=== PATIENT | female | born 1970 | race African-American/Black ===

== ENCOUNTER 2021-11-16 14:40 | Emergency (ER) | payer MEDICAID, OTHER ==
[~2021-11-16] VITALS: Ht 160 cm; Wt 57.8 kg
[2021-11-16 14:41] VITALS: BP 109/63
[2021-11-16] MEDS ORDERED: KETOROLAC 30 MG/ML 1ML VIAL IV ONE (16:15)
[2021-11-16] MEDS ORDERED: KETOROLAC 30 MG/ML 1ML VIAL IM ONE ×2 (16:25→16:30)
== END 2021-11-16 16:42 | disposition home or self-care (01) ==
LOC: M ED 14:40
DX: M25.572 Pain in left ankle and joints of left foot (principal); R22.40 Localized swelling, mass and lump, unspecified lower limb; F31.9 Bipolar disorder, unspecified
CPT/HCPCS: 96372; 99284; J1885

== ENCOUNTER 2021-12-31 17:58 | Emergency (ER) | payer OTHER ==
[2021-12-31 20:34] LABS: BASO % 0.4 % (0.0-1.0); EOS # 0.2 10^3/uL (0.0-0.5); EOS % 2.4 % (0.0-3.0); HEMOGLOBIN 14.1 g/dl (12.0-15.5); LYMPH # 3.2 10^3/uL (1.5-5.0); LYMPH % 38.3 % (24.0-44.0); MEAN CORPUSCULAR HEMOGLOBIN 31.5 pg (27.0-33.0); MEAN CORPUSCULAR HGB CONC 33.6 g/dl (32.0-36.5); MEAN CORPUSCULAR VOLUME 93.8 fl (80.0-96.0); MONO % 12.3 % (2.0-8.0); NEUTROPHILS # 3.8 10^3/uL (1.5-8.5); NEUTROPHILS % 46.4 % (36.0-66.0); PLATELET COUNT, AUTOMATED 250 10^3/uL (150-450); RED BLOOD COUNT 4.48 10^6/uL (4.00-5.40); WHITE BLOOD COUNT 8.2 10^3/uL (4.0-10.0)
[2021-12-31] MEDS ORDERED: MORPHINE 4 MG/ML 1ML VIAL/SYRINGE IV ONE (20:40)
[2021-12-31] MEDS ORDERED: NS 1,000 ML IV ONE (20:40)
[2021-12-31] MEDS ORDERED: ONDANSETRON 4MG 2ML VIAL IV ONE (20:40)
[2021-12-31] MEDS ORDERED: ISOVUE-370 76% 100ML VIAL As Ordered ONE (20:45)
[2021-12-31 21:22] LABS: ALBUMIN 3.2 GM/DL (3.2-5.2); ALT/SGPT 28 U/L (12-78); BILIRUBIN,DIRECT < 0.1 MG/DL (0.0-0.2); BILIRUBIN,TOTAL 0.3 MG/DL (0.2-1.0); LIPASE 139 U/L (73-393)
[2021-12-31 22:13] VITALS: BP 100/57
== END 2021-12-31 22:36 | disposition home or self-care (01) ==
LOC: EDSEX 17:58 → M ED 17:58 → EDBD 17:58 → M ED 22:36
DX: R10.31 Right lower quadrant pain (principal); K76.89 Other specified diseases of liver; F17.200 Nicotine dependence, unspecified, uncomplicated
CPT/HCPCS: 74177; 76705; 80047; 80076; 81001; 83690; 85025; 87086; 96361; 96374; 99284; J2270; J2405; Q9967

== ENCOUNTER → 2022-05-30 | Outpatient (CLI) | payer OTHER | LOC: M WHC 10:49 | PROVIDERS: ATTEND Nurse Practitioner Family | DX: Z12.31 Encounter for screening mammogram for malignant neoplasm of breast (principal) ==

== ENCOUNTER → 2022-08-15 | Outpatient (REF) | payer OTHER ==
[2022-08-15 13:29] LABS: BASO % 0.4 % (0.0-1.0); EOS # 0.2 10^3/uL (0.0-0.5); EOS % 2.2 % (0.0-3.0); HEMATOCRIT 48.6 % (36.0-47.0); HEMOGLOBIN 15.7 g/dl (12.0-15.5); LYMPH % 36.5 % (24.0-44.0); MEAN CORPUSCULAR HEMOGLOBIN 30.8 pg (27.0-33.0); MEAN CORPUSCULAR HGB CONC 32.3 g/dl (32.0-36.5); MEAN CORPUSCULAR VOLUME 95.5 fl (80.0-96.0); MONO # 0.8 10^3/uL (0.0-0.8); MONO % 9.5 % (2.0-8.0); NEUTROPHILS # 4.3 10^3/uL (1.5-8.5); NEUTROPHILS % 51.2 % (36.0-66.0); PLATELET COUNT, AUTOMATED 234 10^3/uL (150-450); RED BLOOD COUNT 5.09 10^6/uL (4.00-5.40); WHITE BLOOD COUNT 8.3 10^3/uL (4.0-10.0)
[2022-08-15 13:58] LABS: RHEUMATOID FACTOR QUANT < 3.5 IU/ML (<14)
[2022-08-15 13:59] LABS: ALBUMIN 3.6 G/DL (3.2-5.2); ALKALINE PHOSPHATASE 131 U/L (46-116); ALT/SGPT 20 U/L (7.0-40); AST/SGOT 18 U/L (<34); BILIRUBIN,TOTAL 0.4 MG/DL (0.3-1.2); BLOOD UREA NITROGEN 17 MG/DL (9-23); CALCIUM LEVEL 9.3 MG/DL (8.5-10.1); CARBON DIOXIDE LEVEL 30 MMOL/L (20-31); CHLORIDE LEVEL 105 MMOL/L (98-107); CREATININE FOR GFR 0.58 MG/DL (0.55-1.30); GLOMERULAR FILTRATION RATE > 60.0 (>51); GLUCOSE, FASTING 99 MG/DL (60-100); SODIUM LEVEL 141 MMOL/L (136-145); TOTAL PROTEIN 7.2 G/DL (5.7-8.2)
[2022-08-15 14:11] LABS: ERYTHROCYTE SEDIMENTATION RATE 13 mm/hr (0-30)
[2022-08-16 21:09] LABS: ANA (HEP2) Positive (.); CYCLIC CITRULLINATED PEPTIDE 4 units (0-19); SSA SJOGRENS A <0.2 AI (0.0-0.9); SSB SJOGRENS B <0.2 AI (0.0-0.9)
== END ==
LOC: M LAB REF 12:17
PROVIDERS: ATTEND Nurse Practitioner Family
DX: M25.50 Pain in unspecified joint (principal)

== ENCOUNTER 2022-08-28 14:24 | Emergency (ER) | payer OTHER ==
[~2022-08-28] VITALS: Ht 160 cm; Wt 72.7 kg
[2022-08-28 15:17] LABS: BASO % 0.3 % (0.0-1.0); EOS % 0.4 % (0.0-3.0); HEMATOCRIT 45.1 % (36.0-47.0); HEMOGLOBIN 15.3 g/dl (12.0-15.5); LYMPH # 2.9 10^3/uL (1.5-5.0); LYMPH % 39.4 % (24.0-44.0); MEAN CORPUSCULAR HGB CONC 33.9 g/dl (32.0-36.5); MEAN CORPUSCULAR VOLUME 91.3 fl (80.0-96.0); MONO # 0.9 10^3/uL (0.0-0.8); MONO % 12.2 % (2.0-8.0); NEUTROPHILS # 3.5 10^3/uL (1.5-8.5); NEUTROPHILS % 47.6 % (36.0-66.0); PLATELET COUNT, AUTOMATED 222 10^3/uL (150-450); RED BLOOD COUNT 4.94 10^6/uL (4.00-5.40); WHITE BLOOD COUNT 7.3 10^3/uL (4.0-10.0)
[2022-08-28] MEDS ORDERED: ISOVUE-370 76% 100ML VIAL As Ordered ONE (15:21)
[2022-08-28] MEDS ORDERED: ONDANSETRON 4MG 2ML VIAL IV ONE (15:40)
[2022-08-28 15:42] LABS: LIPASE 25 U/L (12-53)
[2022-08-28 15:44] LABS: ALBUMIN 3.4 G/DL (3.2-5.2); ALKALINE PHOSPHATASE 105 U/L (46-116); ALT/SGPT 24 U/L (7.0-40); AST/SGOT 25 U/L (<34); BILIRUBIN,DIRECT 0.1 MG/DL (<0.4); BILIRUBIN,TOTAL 0.4 MG/DL (0.3-1.2); BLOOD UREA NITROGEN 14 MG/DL (9-23); CALCIUM LEVEL 8.5 MG/DL (8.5-10.1); CARBON DIOXIDE LEVEL 23 MMOL/L (20-31); CHLORIDE LEVEL 103 MMOL/L (98-107); CREATININE FOR GFR 0.58 MG/DL (0.55-1.30); GLOMERULAR FILTRATION RATE > 60.0 (>51); GLUCOSE, FASTING 92 MG/DL (60-100); POTASSIUM SERUM 3.5 MMOL/L (3.5-5.1); SODIUM LEVEL 137 MMOL/L (136-145); TOTAL PROTEIN 6.7 G/DL (5.7-8.2)
[2022-08-28] MEDS ORDERED: ONDA-83 PO (16:38)
[2022-08-28 18:28] VITALS: BP 120/70
== END 2022-08-28 18:49 | disposition home or self-care (01) ==
LOC: EDBD 14:24 → M ED 14:24
DX: A08.4 Viral intestinal infection, unspecified (principal); F17.210 Nicotine dependence, cigarettes, uncomplicated
CPT/HCPCS: 74177; 80047; 80048; 80076; 83690; 85025; 93005; 93041; 96374; 99285; J2405; Q9967

== ENCOUNTER → 2022-10-09 | Outpatient (REF) | payer OTHER ==
[~2022-10-09] MED LIST: ONDA-83 PO
[2022-10-09 14:27] LABS: ALBUMIN 3.6 G/DL (3.2-5.2); ALKALINE PHOSPHATASE 133 U/L (46-116); ALT/SGPT 23 U/L (7.0-40); AST/SGOT 20 U/L (<34); BILIRUBIN,TOTAL 0.6 MG/DL (0.3-1.2); BLOOD UREA NITROGEN 14 MG/DL (9-23); CALCIUM LEVEL 9.6 MG/DL (8.5-10.1); CARBON DIOXIDE LEVEL 30 MMOL/L (20-31); CHLORIDE LEVEL 104 MMOL/L (98-107); CHOLESTEROL LEVEL 226 MG/DL (<200); CHOLESTEROL RISK RATIO 4.04 (<5); CREATININE FOR GFR 0.61 MG/DL (0.55-1.30); GLOMERULAR FILTRATION RATE > 60.0 (>51); GLUCOSE, FASTING 101 MG/DL (60-100); HDL CHOLESTEROL 55.9 MG/DL (>40); LDL CHOLESTEROL 152.9 MG/DL (<100); NON-HDL-C 170.1 MG/DL; POTASSIUM SERUM 4.3 MMOL/L (3.5-5.1); SODIUM LEVEL 139 MMOL/L (136-145); TOTAL PROTEIN 6.9 G/DL (5.7-8.2); TRIGLYCERIDES LEVEL 86 MG/DL (<150)
[2022-10-09 14:39] LABS: HEMOGLOBIN A1c 5.6 % (4.0-6.0)
== END ==
LOC: M LAB REF 12:59
PROVIDERS: ATTEND Nurse Practitioner Family
DX: R79.89 Other specified abnormal findings of blood chemistry (principal); Z13.228 Encounter for screening for other metabolic disorders

== ENCOUNTER 2023-04-28 07:19 | Emergency (ER) | payer OTHER ==
[~2023-04-28] VITALS: Ht 160 cm; Wt 68.2 kg
[2023-04-28] MEDS ORDERED: ONDANSETRON 4MG ORAL DISINTEGRATING TAB PO ONE (08:55)
[2023-04-28] MEDS ORDERED: BENZ200C70 PO (09:50)
[2023-04-28] MEDS ORDERED: ONDA4TAB6 PO (09:50)
[2023-04-28 10:13] VITALS: BP 101/65; TEMP 99.7; O2SAT 99
== END 2023-04-28 10:17 | disposition home or self-care (01) ==
LOC: M ED 07:19 → EDBD 07:19 → M ED 10:17
DX: J09.X2 Influenza due to identified novel influenza A virus with other respiratory manifestations (principal); F17.200 Nicotine dependence, unspecified, uncomplicated; Z79.83 Long term (current) use of bisphosphonates; Z79.899 Other long term (current) drug therapy

== ENCOUNTER → 2023-05-04 | Outpatient (REF) | payer OTHER ==
[~2023-05-04] MED LIST changes: +BENZ200C70 PO; +ONDA4TAB6 PO
[2023-05-04 17:45] LABS: CHOLESTEROL RISK RATIO 4.7 (<5); LDL CHOLESTEROL 113.6 MG/DL (<100)
[2023-05-04 17:48] LABS: TOTAL 25(OH) VITAMIN D 22.2 NG/ML (20.0-100.0)
== END ==
LOC: M LAB REF 16:35
PROVIDERS: ATTEND Nurse Practitioner Family
DX: E55.9 Vitamin D deficiency, unspecified (principal); R79.89 Other specified abnormal findings of blood chemistry

== ENCOUNTER 2023-06-29 09:02 | Emergency (ER) | payer OTHER ==
[~2023-06-29] VITALS: Ht 160 cm; Wt 69.4 kg
[2023-06-29] MEDS ORDERED: ACE65ERTAB (09:20)
[2023-06-29] MEDS ORDERED: VITA200032 (09:20)
[2023-06-29] MEDS ORDERED: IBUP80TA (09:20)
[2023-06-29] MEDS ORDERED: ATOR1TAB19 (09:20)
[2023-06-29] MEDS ORDERED: METH-1164 PO (11:07)
[2023-06-29 11:19] VITALS: BP 121/82; TEMP 97.7; O2SAT 99
== END 2023-06-29 11:22 | disposition home or self-care (01) ==
LOC: M ED 09:02
DX: S06.0X0A Concussion without loss of consciousness, initial encounter (principal); S13.4XXA Sprain of ligaments of cervical spine, initial encounter; S43.402A Unspecified sprain of left shoulder joint, initial encounter; F17.200 Nicotine dependence, unspecified, uncomplicated; W01.118A Fall on same level from slipping, tripping and stumbling with subsequent striking against other sharp object, initial encounter; Y92.511 Restaurant or cafe as the place of occurrence of the external cause; Y93.89 Activity, other specified; Y99.0 Civilian activity done for income or pay; Z79.02 Long term (current) use of antithrombotics/antiplatelets; Z79.83 Long term (current) use of bisphosphonates; Z79.899 Other long term (current) drug therapy; M19.012 Primary osteoarthritis, left shoulder

== ENCOUNTER → 2023-12-10 | Outpatient (CLI) | payer MEDICAID, OTHER, SELFPAY ==
[~2023-12-10] MED LIST changes: +ACE65ERTAB; +ATOR1TAB19; +IBUP80TA; +METH-1164 PO; +ONDA-282 PO; -ONDA4TAB6 PO; +VITA200032
== END ==
LOC: M RAD 12:06
PROVIDERS: ATTEND Nurse Practitioner Family
DX: M20.11 Hallux valgus (acquired), right foot (principal)

== ENCOUNTER → 2023-12-22 | Outpatient (REF) | payer SELFPAY, OTHER ==
[2023-12-22 14:20] LABS: BASO % 0.4 % (0.0-1.0); EOS # 0.2 10^3/uL (0.0-0.5); EOS % 1.8 % (0.0-3.0); HEMATOCRIT 42.7 % (36.0-47.0); LYMPH # 3.1 10^3/uL (1.5-5.0); LYMPH % 37.2 % (24.0-44.0); MEAN CORPUSCULAR HEMOGLOBIN 31.6 pg (27.0-33.0); MEAN CORPUSCULAR HGB CONC 32.8 g/dl (32.0-36.5); MEAN CORPUSCULAR VOLUME 96.4 fl (80.0-96.0); MONO # 0.9 10^3/uL (0.0-0.8); MONO % 10.7 % (2.0-8.0); NEUTROPHILS # 4.1 10^3/uL (1.5-8.5); NEUTROPHILS % 49.7 % (36.0-66.0); PLATELET COUNT, AUTOMATED 255 10^3/uL (150-450); RED BLOOD COUNT 4.43 10^6/uL (4.00-5.40); WHITE BLOOD COUNT 8.3 10^3/uL (4.0-10.0)
[2023-12-22 14:33] LABS: HEMOGLOBIN A1c 5.4 % (4.0-6.0)
[2023-12-22 14:47] LABS: ALBUMIN 3.7 G/DL (3.2-5.2); ALKALINE PHOSPHATASE 141 U/L (46-116); ALT/SGPT 28 U/L (7.0-40); AST/SGOT 26 U/L (<34); BILIRUBIN,TOTAL 0.5 MG/DL (0.3-1.2); BLOOD UREA NITROGEN 15 MG/DL (9-23); CALCIUM LEVEL 9.6 MG/DL (8.5-10.1); CARBON DIOXIDE LEVEL 30 MMOL/L (20-31); CHLORIDE LEVEL 105 MMOL/L (98-107); CHOLESTEROL LEVEL 209 MG/DL (<200); CHOLESTEROL RISK RATIO 3.17 (<5); CREATININE FOR GFR 0.56 MG/DL (0.55-1.30); GLOMERULAR FILTRATION RATE > 60.0 (>51); GLUCOSE, FASTING 86 MG/DL (60-100); HDL CHOLESTEROL 65.9 MG/DL (>40); LDL CHOLESTEROL 127.7 MG/DL (<100); MAGNESIUM LEVEL 1.9 MG/DL (1.8-2.4); NON-HDL-C 143.1 MG/DL; POTASSIUM SERUM 4.3 MMOL/L (3.5-5.1); SODIUM LEVEL 140 MMOL/L (136-145); TOTAL PROTEIN 7.1 G/DL (5.7-8.2); TRIGLYCERIDES LEVEL 77 MG/DL (<150)
[2023-12-22 14:49] LABS: THYROID STIMULATING HORMONE 0.745 uIU/ML (0.55-4.78); TOTAL 25(OH) VITAMIN D 21.3 NG/ML (20.0-100.0)
== END ==
LOC: M LAB REF 13:31
PROVIDERS: ATTEND Nurse Practitioner Family
DX: E55.9 Vitamin D deficiency, unspecified (principal); E66.3 Overweight